=== PATIENT | female | born 1940 | race Caucasian/White ===

== ENCOUNTER 2020-06-16 16:28 | Inpatient (IN) | payer MEDICARE, OTHER ==
[~2020-06-16] VITALS: Ht 154.9 cm; Wt 80.5 kg
[2020-06-16 16:59] LABS: BASOPHILS 0.6 % (0-2); EOSINOPHILS 2.5 % (0-7); HEMATOCRIT 49.6 % (36.0-48.0); HEMOGLOBIN 15.7 g/dL (12-16); IMMATURE GRANULOCYTES 0.1 % (0-5); LYMPHOCYTE ABS# 0.98 10x3/uL (1.18-3.74); LYMPHOCYTES 11.5 % (15-50); MCH 28.9 pg (26.0-34.0); MCHC 31.7 g/dL (31.0-37.0); MCV 91.3 fL (80.0-100.0); MEAN PLATELET VOLUME 9.7 fL (7.4-10.4); MONOCYTES 8.1 % (2-11); NEUTROPHILS 77.2 % (40-80); PLATELET COUNT 227 10x3/uL (130-400); RBC 5.43 10x6/uL (4.00-5.40); RDW 14.1 % (11.5-14.5); WBC 8.5 10x3/uL (4.8-10.8)
--- NOTE | 2020-06-16 17:00 | NUR ---
ATTEMPTED TO TRIAGE PT, PT CURRENTLY WITH RESPIRATORY
[2020-06-16 17:11] LABS: APTT 27.3 SECONDS (22.8-39.4); INR 1.09 (0.85-1.17); PROTIME 13.1 SECONDS (11.6-15.0)
[2020-06-16 17:12] LABS: CALC OSMOLALITY 281 mosm/kg (275-300); CALCIUM 9.7 mg/dL (8.5-10.1); CARBON DIOXIDE 30.7 mmol/L (21.0-32.0); CHLORIDE - SERUM 103 mmol/L (98-107); CREATININE - SERUM 1.3 mg/dL (0.6-1.3); GLUCOSE 100 mg/dL (74-106); POTASSIUM - SERUM 3.7 mmol/L (3.5-5.1); SODIUM 140 mmol/L (136-145); UREA NITROGEN 22 mg/dL (7-18); eGFR NON AFRICAN AMERICAN 42 mL/min (90-120)
[2020-06-16] MEDS ORDERED: K-TAB10 MEQ PO (17:16)
[2020-06-16] MEDS ORDERED: TENORMIN25 MG PO (17:16)
[2020-06-16] MEDS ORDERED: SINGULAIR10 MG PO (17:17)
[2020-06-16] MEDS ORDERED: ZOLOFT100 MG PO (17:18)
[2020-06-16] MEDS ORDERED: FUROSEMIDE40 MG PO (17:19)
[2020-06-16] MEDS ORDERED: VITAMIN B-121000 MCG PO (17:23)
[2020-06-16] MEDS ORDERED: LOVASTATIN40 MG PO (17:23)
[2020-06-16] MEDS ORDERED: BREO ELLIPTA 21 EACH (17:24)
[2020-06-16] MEDS ORDERED: INCRUSE ELLI62.5 MCG INH (17:25)
[2020-06-16 17:26] LABS: ALBUMIN 3.9 g/dL (3.4-5.0); ALKALINE PHOSPHATASE 72 U/L (30-120); ALT (SGPT) 21 U/L (10-68); CREATINE KINASE 86 UL (21-215); PRO BNP 1410 pg/mL (0-450); PROTEIN - SERUM 7.5 g/dL (6.4-8.2)
[2020-06-16 17:28] LABS: TROPONIN-I < 0.017 ng/mL (0.000-0.060)
[2020-06-16 22:29] VITALS: BP 130/55; Ht 154.9 cm; Wt 80.5 kg
[2020-06-17] VITALS: BP 154/54
[2020-06-17 04:00] VITALS: BP 150/52
[2020-06-17 06:39] LABS: BASOPHILS 0 % (0-2); EOSINOPHILS 0 % (0-7); HEMATOCRIT 44.9 % (36.0-48.0); HEMOGLOBIN 14.3 g/dL (12-16); LYMPHOCYTES 8.7 % (15-50); MCH 28.8 pg (26.0-34.0); MCHC 31.8 g/dL (31.0-37.0); MCV 90.5 fL (80.0-100.0); MEAN PLATELET VOLUME 10.1 fL (7.4-10.4); MONOCYTES 0.9 % (2-11); NEUTROPHIL ABS# 4.17 10x3/uL (1.56-6.13); NEUTROPHILS 90.4 % (40-80); PLATELET COUNT 227 10x3/uL (130-400); RBC 4.96 10x6/uL (4.00-5.40)
[2020-06-17 06:51] LABS: ALBUMIN 3.5 g/dL (3.4-5.0); ANION GAP 14.6 mmol/L (8-16); BILIRUBIN - TOTAL 0.53 mg/dL (0.2-1.3); CALCIUM 9.8 mg/dL (8.5-10.1); CARBON DIOXIDE 26.4 mmol/L (21.0-32.0); CREATININE - SERUM 1.3 mg/dL (0.6-1.3); MAGNESIUM - SERUM 2.6 mg/dL (1.8-2.4)
[2020-06-17 06:54] LABS: WBC 4.6 10x3/uL (4.8-10.8)
--- NOTE | 2020-06-17 07:40 | NUR ---
RECIEVED BEDSIDE REPORT. PATIENT BLIND. INTRODUCED SELF. CALL LIGHT IN REACH, BED LOW POSITION. FREE FROM SIGNS OF DISTRESS. DENIES NEEDS AT THIS TIME. WILL COTNINUE TO MONITOR.
--- NOTE | 2020-06-17 07:54 | NUR ---
PATIENT AWAKE IN BED PLEASANTLY CONFUSED. NC ON AT 3.5L, IV IN LEFT HAND ZOSYN RUNNING, NO NEEDS VOICED AT THIS TIME. CONTINUE WITH PLAN OF CARE
[2020-06-17 09:34] VITALS: BP 127/47
[2020-06-17 13:44] VITALS: BP 129/49
[2020-06-17 16:23] VITALS: BP 128/43
--- NOTE | 2020-06-17 19:45 | NUR ---
RECEIVED BEDSIDE REPORT. PT LAYING IN BED A&O X4. PIV TO LEFT HAND, PATENT AND S/L, NO REDNESS OR SWELLING. O2 SAT 96% ON 3L VIA NC. PT ABLE TO AMBULATE WITH ASSIST. BED LOW, CL IN REACH.
[2020-06-17 20:00] VITALS: BP 123/58
--- NOTE | 2020-06-18 01:49 | NUR ---
PT LAYING IN BED, EYES CLOSED, EVEN RESPIRATIONS. O2 SAT 88%, TURNED NC UP TO 5L, O2 SAT INCREASED TO 94%. WILL CONTINUE TO MONITOR.
[2020-06-18 04:00] VITALS: BP 127/48
--- NOTE | 2020-06-18 07:00 | NUR ---
PT. RECEIVED RESTING IN CHAIR, IS 1500, NO DISTRESS. 02 8L NC. LUNGS DIMINISHED. SL INTACT TO L. WRIST 22G. NON SKID SOCKS ON. ALERT AND ORIENTED, BLIND TO BOTH EYES. AT BEDSIDE. CALL LIGHT AT BEDSIDE. SRX2.
[2020-06-18 07:02] LABS: BASOPHILS 0 % (0-2); EOSINOPHILS 1.1 % (0-7); HEMATOCRIT 43.2 % (36.0-48.0); HEMOGLOBIN 13.8 g/dL (12-16); IMMATURE GRANULOCYTES 0.2 % (0-5); LYMPHOCYTE ABS# 0.39 10x3/uL (1.18-3.74); LYMPHOCYTES 3.7 % (15-50); MCH 28.8 pg (26.0-34.0); MCHC 31.9 g/dL (31.0-37.0); MEAN PLATELET VOLUME 11.1 fL (7.4-10.4); MONOCYTES 4.8 % (2-11); NEUTROPHIL ABS# 9.51 10x3/uL (1.56-6.13); NEUTROPHILS 90.2 % (40-80); RDW 13.7 % (11.5-14.5)
[2020-06-18 07:13] LABS: PLATELET COUNT 153 10x3/uL (130-400); WBC 10.6 10x3/uL (4.8-10.8)
[2020-06-18 07:36] LABS: ALBUMIN 3.5 g/dL (3.4-5.0); ANION GAP 15.3 mmol/L (8-16); BILIRUBIN - TOTAL 0.4 mg/dL (0.2-1.3); CALCIUM 9.9 mg/dL (8.5-10.1); CREATININE - SERUM 1.3 mg/dL (0.6-1.3); MAGNESIUM - SERUM 2.4 mg/dL (1.8-2.4); PHOSPHOROUS 3.9 mg/dL (2.5-4.9); POTASSIUM - SERUM 4.3 mmol/L (3.5-5.1); PROTEIN - SERUM 6.7 g/dL (6.4-8.2)
[2020-06-18 08:52] VITALS: BP 143/59
[2020-06-18 12:29] VITALS: BP 152/60
[2020-06-18 17:12] VITALS: BP 148/66
--- NOTE | 2020-06-18 19:56 | NUR ---
RECEIVED BEDSIDE REPORT. PT SITTING IN CHAIR A&O X4. PIV TO LEFT WRIST, PATENT AND S/L, NO REDNESS OR SWELLING. O2 SAT 96% ON 4L VIA NC. PT ABLE TO AMBULATE WITH MIN ASSIST. EDUCATED PT ON CL AND NEEDS, VERBALIZED UNDERSTANDING. CHAIR LOCKED AND CL IN REACH.
[2020-06-19 05:48] VITALS: BP 163/82
[2020-06-19 06:04] VITALS: BP 170/62
[2020-06-19 06:46] LABS: BASOPHILS 0 % (0-2); EOSINOPHILS 0 % (0-7); HEMATOCRIT 43.1 % (36.0-48.0); HEMOGLOBIN 13.4 g/dL (12-16); IMMATURE GRANULOCYTES 0.2 % (0-5); LYMPHOCYTE ABS# 0.39 10x3/uL (1.18-3.74); LYMPHOCYTES 4.3 % (15-50); MCH 28.2 pg (26.0-34.0); MCHC 31.1 g/dL (31.0-37.0); MCV 90.7 fL (80.0-100.0); MEAN PLATELET VOLUME 10.2 fL (7.4-10.4); NEUTROPHIL ABS# 8.03 10x3/uL (1.56-6.13); NEUTROPHILS 89.5 % (40-80); RBC 4.75 10x6/uL (4.00-5.40); RDW 13.9 % (11.5-14.5)
[2020-06-19 06:59] LABS: PLATELET COUNT 241 10x3/uL (130-400)
[2020-06-19 07:15] LABS: IMMUNOGLOBULIN A 165 mg/dL (64-422); IMMUNOGLOBULIN G 684 mg/dL (586-1602)
[2020-06-19 07:33] LABS: ALBUMIN 3.4 g/dL (3.4-5.0); ANION GAP 11.6 mmol/L (8-16); BILIRUBIN - TOTAL 0.28 mg/dL (0.2-1.3); CALCIUM 9.5 mg/dL (8.5-10.1); CARBON DIOXIDE 29.4 mmol/L (21.0-32.0); CREATININE - SERUM 1.2 mg/dL (0.6-1.3); MAGNESIUM - SERUM 2.2 mg/dL (1.8-2.4); PHOSPHOROUS 3.6 mg/dL (2.5-4.9); PROTEIN - SERUM 6.6 g/dL (6.4-8.2)
[2020-06-19 08:27] VITALS: BP 133/57
[2020-06-19 10:10] LABS: ANA REFLEX - DIRECT Negative (Negative)
[2020-06-19 12:43] VITALS: BP 141/56
--- NOTE | 2020-06-19 13:54 | NUR ---
PT SITTING UP IN CHAIR, NO SIGNS OF DISTRESS, NO NEEDS AT THIS TIME
[2020-06-19 17:23] VITALS: BP 133/64
[2020-06-19 20:00] VITALS: BP 145/60
--- NOTE | 2020-06-19 20:10 | NUR ---
UP IN CHAIR AT BEDSIDE. NO COMPALINTS VOICED NO DISTESS NOTED. 02 @ 3L PER NC ON. CL IN REACH
[2020-06-20 05:44] LABS: HEMATOCRIT 43.2 % (36.0-48.0); HEMOGLOBIN 13.8 g/dL (12-16); LYMPHOCYTES 12.2 % (15-50); MCH 29.3 pg (26.0-34.0); MCHC 31.9 g/dL (31.0-37.0); MCV 91.7 fL (80.0-100.0); MEAN PLATELET VOLUME 9.7 fL (7.4-10.4); PLATELET COUNT 217 10x3/uL (130-400); RBC 4.71 10x6/uL (4.00-5.40); RDW 13.7 % (11.5-14.5); WBC 9.1 10x3/uL (4.8-10.8)
[2020-06-20 06:14] LABS: ALBUMIN 3.5 g/dL (3.4-5.0); ANION GAP 10.1 mmol/L (8-16); BILIRUBIN - TOTAL 0.39 mg/dL (0.2-1.3); CALCIUM 9.4 mg/dL (8.5-10.1); CARBON DIOXIDE 29.5 mmol/L (21.0-32.0); CREATININE - SERUM 1.2 mg/dL (0.6-1.3); MAGNESIUM - SERUM 2.2 mg/dL (1.8-2.4); PHOSPHOROUS 3.9 mg/dL (2.5-4.9); POTASSIUM - SERUM 3.6 mmol/L (3.5-5.1); PROTEIN - SERUM 6.2 g/dL (6.4-8.2)
[2020-06-20 07:00] VITALS: BP 167/74
--- NOTE | 2020-06-20 07:54 | NUR ---
PT UP TO BATHROOM, AND BACK TO BED. ALERT AND ORIENTED. CURRENTLY RCVING 3L VIA NC. IV LOCATED TO LEFT WRIST CURRENTLY SL. CONT PULSE OX PRESENT CURRENTLY AT 97%. NO CURRENT S/S OF DISTRESS AT THIS TIME, DENIES CURRENT NEEDS, WILL CONT TO MONITOR.
--- NOTE | 2020-06-20 10:30 | NUR ---
PT UP TO SHOWER, BACK TO BED.
[2020-06-20 15:29] VITALS: BP 123/69
[2020-06-20 20:42] VITALS: BP 138/64
--- NOTE | 2020-06-20 23:42 | NUR ---
I have reviewed this patient and I concur with the Shift Assessment completed by the Licensed Practical Nurse today this shift.
--- NOTE | 2020-06-21 06:53 | NUR ---
REFUSED LAB STATES "GOING HOME TODAY SO DONT NEED IT DONE".INFORMED PATIENT IT WAS TO MAKE SURE EVERYTHING WAS OK. STATES SHE FEELS FINE.
--- NOTE | 2020-06-21 07:10 | NUR ---
REC'D SITTING IN CHAIR IN ROOM AWAKE AND ALERT. RESP EVEN AND UNLABORED WITH NO DISTRESS NOTED. CAN EXPRESS NEEDS AND WANTS.NO C/O NOTED OR VOICED. ASSESSMENT COMPLETED. C/L IN REACH AT BEDSIDE.
[2020-06-21 10:18] VITALS: BP 131/67
[2020-06-21 14:00] VITALS: BP 119/54
[2020-06-21] MEDS ORDERED: DALIRESP250 MCG PO (14:24)
[2020-06-21] MEDS ORDERED: FLUTICASONE PRO16 GM NASAL (14:25)
[2020-06-21] MEDS ORDERED: ATROVENT 0.02%2.5 ML UPD (14:26)
[2020-06-21] MEDS ORDERED: Xopenex 0.63 MG INH INH (14:27)
[2020-06-21] MEDS ORDERED: TRELEGY ELLIPT1 EACH INH (14:32)
[2020-06-21] MEDS ORDERED: MONODOX100 MG PO (14:33)
[2020-06-21] MEDS ORDERED: MUCINEX600 MG PO (14:37)
[2020-06-21] MEDS ORDERED: PREDNISONE10 MG PO (14:37)
--- NOTE | 2020-06-21 15:28 | MORECARE ---
CASE MANAGEMENT DISCHARGE SUMMARY PATIENT: KENYA RICHTER UNIT: [id number] ADM DATE: 06/16/20 AGE: 80 : 42 SEX: F ROOM/BED: D.2212 AUTHOR: MICHAEL PECK PHYSICIAN: REFERRING PHYSICIAN: HONORIO ALLISON MD DATE OF SERVICE: 06/21/20 Case Management Discharge Planning Summary COMMENTS ENTERED DATE: 06/21/20 15:19 CT COMMENT TYPE: Discharge Planning REVIEWER: Amalia Marks CM met with patient to complete initial dc planning assessment. CM educated patient on the CM role and verbal consent given by patient to complete assessment. Patient lives at home with her spouse where she is partially dependent with her ADL's. 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 Her spouse helps her at home with some things. At discharge patient plans to return home and feels this is a safe discharge. She lives at the [facility]. CM discussed availability of home health, rehab services, and medical equipment. She has portable and home O2 with [facility]. She has a portable tank in her car. We talked about HH and she was not to sure about it and wanted to speak with Dr Brown before getting it. She did ask for help with laundry for her and I explained the [employer] [facility] program and private care . She has a scooter that she uses when she goes out. She also has a nebulizer. I called Jeffrey with [facility] to let him know about the nebulizer medications. I faxed over the latest [facility] note for him to make sure she has the correct medications. She does not have a walker and I feel like she could benefit with one with a seat dues to the many rest breaks. I ordered a rollator walker with a basket and brakes to be delivered to her home from [employer]. [facility] served and explained. SHELLIE signed to continue with [facility]. Patient denied known discharge needs at this time. CM will continue to follow and will assist as needed with dc plans/needs. DCP REVIEW SUMMARY ANTICIPATED D/C DATE: EXPECTED LOS : CASE STATUS: DCP Initiated INITIAL REVIEW: 06/16/2020 INITIAL REVIEWER: Amalia Marks FINAL DISCHARGE DISPOSITION: 01 : Home or Self Care (Routine Discharge) FINAL REVIEWER: FINAL REVIEW DATE: DCP [facility] Questions & Answers QUESTION: ANSWER : PATIENT: KENYA RICHTER ENCOUNTER: [id number] MEDICAL RECORD#: [id number] ADMISSION DATE: 06/16/2020 DISCHARGE DATE: ATTENDING MD: HONORIO HAGEN : AGE: 80 MARITAL STATUS: M DC PLAN ID: [id number] FACILITY: [facility] PRINTED ON: 06/21/20 15:28 CT All edits/amendments must be made on the electronic document DICTATION DATE: 06/21/201526 [employer] CUSTODIAN: IVETH 06/21/201526 RPT#: [id number] DC DATE: STATUS: ADM IN [facility] [address] [place] [address] END OF REPORT
--- NOTE | 2020-06-21 16:37 | NUR ---
OT NOTE: PT COMPLETED SIT TO STAND WITH CGA. PT COMPLETED ADL MOB WITH CGA. PT IS EASILY SOB WITH ACTIVITIES. PT REQUIRED REST BREAKS. PT COMPLETED COMPLETED UE AROM WITH FUNCTIONAL TASK. PT COMPLETED HAND HYGIENE WITH SBA. [id number] THANK YOU,FRANCISCO J MILLER
--- NOTE | 2020-06-21 16:39 | NUR ---
DC HOME WITH ALL PERSONAL BELONGING. VOICES UNDERSTANDING OF DC INSTRUCTION GIVEN BY FINANCIAL SERVICES DIRECTOR. STABLE CONDITION UPON DEPARTURE.
[2020-06-22 03:08] LABS: IMMUNOGLOBULIN E 595 IU/mL (6-495)
--- NOTE | 2020-06-23 08:45 | MORECARE ---
CASE MANAGEMENT DISCHARGE SUMMARY PATIENT: KENYA RICHTER UNIT: [id number] ADM DATE: 06/16/20 AGE: 80 : 42 SEX: F ROOM/BED: D.2212 AUTHOR: MICHAEL PECK PHYSICIAN: REFERRING PHYSICIAN: HONORIO ALLISON MD DATE OF SERVICE: 06/23/20 Case Management Discharge Planning Summary COMMENTS ENTERED DATE: 06/21/20 15:19 CT COMMENT TYPE: Discharge Planning REVIEWER: Amalia Marks CM met with patient to complete initial dc planning assessment. CM educated patient on the CM role and verbal consent given by patient to complete assessment. Patient lives at home with her spouse where she is partially dependent with her ADL's. 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 Her spouse helps her at home with some things. At discharge patient plans to return home and feels this is a safe discharge. She lives at [facility]. CM discussed availability of home health, rehab services, and medical equipment. She has portable and home O2 with [facility]. She has a portable tank in her car. We talked about HH and she was not to sure about it and wanted to speak with Dr Brown before getting it. She did ask for help with laundry for her and I explained the [employer] [facility] program and private care . She has a scooter that she uses when she goes out. She also has a nebulizer. I called Jeffrey with [facility] to let him know about the nebulizer medications. I faxed over the latest [facility] note for him to make sure she has the correct medications. She does not have a walker and I feel like she could benefit with one with a seat dues to the many rest breaks. I ordered a rollator walker with a basket and brakes to be delivered to her home from [employer]. [facility] served and explained. SHELLIE signed to continue with [facility]. Patient denied known discharge needs at this time. CM will continue to follow and will assist as needed with dc plans/needs. DCP REVIEW SUMMARY ANTICIPATED D/C DATE: EXPECTED LOS : 0 CASE STATUS: DCP Complete INITIAL REVIEW: 06/16/2020 INITIAL REVIEWER: Amalia Marks FINAL DISCHARGE DISPOSITION: 01 : Home or Self Care (Routine Discharge) FINAL REVIEWER: Amalia Marks FINAL REVIEW DATE: 06/23/2020 DCP [facility] Questions & Answers QUESTION: ANSWER : PATIENT: KENYA RICHTER ENCOUNTER: [id number] MEDICAL RECORD#: [id number] ADMISSION DATE: 06/16/2020 DISCHARGE DATE: 06/21/2020 ATTENDING MD: HONORIO HAGEN : AGE: 80 MARITAL STATUS: M DC PLAN ID: [id number] FACILITY: [facility] PRINTED ON: 06/23/20 8:45 CT All edits/amendments must be made on the electronic document DICTATION DATE: 06/23/20844 COMMUNITY [employer]ATIONS ADVISOR: IVETH 06/23/2045 RPT#: [id number] DC DATE:06/21/20 STATUS: DIS IN [facility] [address] [place] [address] END OF REPORT
== END 2020-06-21 16:40 | disposition home or self-care (01) | DRG 189 ==
LOC: D.ER 16:28 → D.MS 19:37
PROVIDERS: Family Medicine; Internal Medicine Pulmonary Disease; ADMIT Emergency Medicine; ATTEND Emergency Medicine
PROC: 5A09357 Assistance with Respiratory Ventilation, Less than 24 Consecutive Hours, Continuous Positive Airway Pressure (ICD-10-PCS; principal; 2020-06-18)
DX: J96.21 Acute and chronic respiratory failure with hypoxia (principal); J44.1 Chronic obstructive pulmonary disease with (acute) exacerbation; J44.0 Chronic obstructive pulmonary disease with (acute) lower respiratory infection; Z99.81 Dependence on supplemental oxygen; J20.9 Acute bronchitis, unspecified; R13.10 Dysphagia, unspecified; J30.9 Allergic rhinitis, unspecified; I10 Essential (primary) hypertension; E78.5 Hyperlipidemia, unspecified; M19.90 Unspecified osteoarthritis, unspecified site; E04.1 Nontoxic single thyroid nodule; I73.00 Raynaud's syndrome without gangrene; E83.41 Hypermagnesemia; Z87.01 Personal history of pneumonia (recurrent); Z87.891 Personal history of nicotine dependence; R53.81 Other malaise

== ENCOUNTER 2020-07-26 07:40 | Emergency (ER) | payer MEDICARE, OTHER ==
[~2020-07-26] VITALS: Ht 154.9 cm; Wt 73.6 kg
[~2020-07-26 07:40] MED LIST: ATROVENT 0.02%2.5 ML UPD; BREO ELLIPTA 21 EACH; DALIRESP250 MCG PO; FLUTICASONE PRO16 GM NASAL; FUROSEMIDE40 MG PO; INCRUSE ELLI62.5 MCG INH; K-TAB10 MEQ PO; LOVASTATIN40 MG PO; MONODOX100 MG PO; MUCINEX600 MG PO; PREDNISONE10 MG PO; SINGULAIR10 MG PO; TENORMIN25 MG PO; TRELEGY ELLIPT1 EACH INH; VITAMIN B-121000 MCG PO; Xopenex 0.63 MG INH INH; ZOLOFT100 MG PO
[2020-07-26 07:59] VITALS: Ht 154.9 cm; Wt 73.6 kg
[2020-07-26] MEDS ORDERED: NAPROXEN250 MG PO (10:31)
[2020-07-26] MEDS ORDERED: ULTRAM50 MG PO (10:31)
[2020-07-26 10:32] VITALS: BP 149/86
== END 2020-07-26 10:32 | disposition home or self-care (01) ==
LOC: D.ER 07:40
DX: M54.5 Low back pain (principal); J44.9 Chronic obstructive pulmonary disease, unspecified; J45.909 Unspecified asthma, uncomplicated